=== PATIENT | male | born 1950 | race Caucasian/White ===

== ENCOUNTER → 2017-09-26 | Outpatient (CLI) | payer MEDICARE, OTHER ==
[2017-09-26 13:00] LABS: ABSOLUTE BASOPHILS # (AUTO) 0.1 10^3/uL (0.0-0.2); ABSOLUTE EOSINOPHILS # (AUTO) 0.1 10^3/uL (0.0-0.6); ABSOLUTE LYMPHOCYTES (AUTO) 1.6 10^3/uL (0.5-4.7); ABSOLUTE MONOCYTES (AUTO) 0.3 10^3/uL (0.1-1.4); ABSOLUTE NEUT (AUTO) 4.8 10^3/uL (1.7-8.2); BASOPHILS % (AUTO) 1.1 % (0-2); EOSINOPHILS % (AUTO) 1.4 % (0-6); HEMATOCRIT 34.6 % (37.9-51.0); LYMPHOCYTES % (AUTO) 23.6 % (13-45); MEAN CORPUSCULAR HEMOGLOBIN 31.8 pg (27.0-33.4); MEAN CORPUSCULAR HGB CONC 34.6 g/dL (32.0-36.0); MEAN CORPUSCULAR VOLUME 92 fl (80-97); MONOCYTES % (AUTO) 4.9 % (3-13); PLATELET COUNT 289 10^3/uL (150-450); RED BLOOD COUNT 3.78 10^6/uL (4.35-5.55); RED CELL DISTRIBUTION WIDTH 13.3 % (11.5-14.0); TOTAL CELLS COUNTED % (AUTO) 100 %; WHITE BLOOD COUNT 6.9 10^3/uL (4.0-10.5)
[2017-09-26 13:32] LABS: ALANINE AMINOTRANSFERASE 14 U/L (21-72); ALBUMIN 3.4 g/dL (3.5-5.0); ALKALINE PHOSPHATASE 82 U/L (38-126); ANION GAP 9 (5-19); ASPARTATE AMINO TRANSFERASE 11 U/L (17-59); BILIRUBIN,DIRECT 0.3 mg/dL (0.0-0.4); BILIRUBIN,TOTAL 0.6 mg/dL (0.2-1.3); BLOOD UREA NITROGEN 17 mg/dL (7-20); CALCIUM 8.5 mg/dL (8.4-10.2); CARBON DIOXIDE 27 mmol/L (22-30); CHLORIDE 106 mmol/L (98-107); GLUCOSE 91 mg/dL (75-110); POTASSIUM 4.3 mmol/L (3.6-5.0); SODIUM 141.9 mmol/L (137-145); TOTAL PROTEIN 6.2 g/dL (6.3-8.2)
[2017-09-26 13:42] LABS: ERYTHROCYTE SEDIMENTATION RATE 49 mm/hr (0-20)
--- NOTE | 2017-09-26 14:20 | RADIOLOGY REPORT (SQ) ---
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 NUMBER OF VIEWS: Two views. TECHNIQUE: AP and lateral radiographic images acquired of the left knee. LIMITATIONS: None. FINDINGS: MINERALIZATION: Normal. BONES: Below the knee amputation. No acute fracture or dislocation. No worrisome bone lesions. JOINT: No effusion. SOFT TISSUES: Soft tissue defect in the anterior tissues at the level of the tibial stump. No radio- opaque foreign body. OTHER: No other significant finding. IMPRESSION: BELOW THE KNEE AMPUTATION. SOFT TISSUE ULCERATION ANTERIOR TO THE TIBIAL STUMP. NO COM MUNICATION TO THE BONY SURFACE AND NO BONY FINDINGS OF OSTEOMYELITIS. NO FOREIGN BODY. TECHNICAL DOCUMENTATION: JOB ID: [id number] [employer]- All Rights Reserved Reading location - IP/workstation name: [email or web address]
== END ==
LOC: OD 12:13
PROVIDERS: ATTEND Surgery
DX: L97.222 Non-pressure chronic ulcer of left calf with fat layer exposed (principal)
CPT/HCPCS: 36415; 80053; 85025; 85652; 86140

== ENCOUNTER 2017-09-30 07:01 | Day surgery (SDC) | payer MEDICARE, OTHER ==
[~2017-09-30 07:01] MED LIST: BACITRACIN INJ 50,000 UNIT VIAL ONE; BUPIVACAINE HCL 0.25 % INJ/PF (2.5 MG/1 ML) 30 ML VIAL ONE; COLLAGENASE CLOSTRIDIUM HIST. OINT 30 GM ONE; LIDOCAINE 0.5% INJ-PF (5 MG/ML) 50 ML SDV ONE; SILVER SULFADIAZINE 1% CREAM 25 GM ONE
[2017-09-30 07:45] LABS: ABSOLUTE BASOPHILS # (AUTO) 0.1 10^3/uL (0.0-0.2); ABSOLUTE EOSINOPHILS # (AUTO) 0.3 10^3/uL (0.0-0.6); ABSOLUTE LYMPHOCYTES (AUTO) 2.2 10^3/uL (0.5-4.7); ABSOLUTE MONOCYTES (AUTO) 0.5 10^3/uL (0.1-1.4); ABSOLUTE NEUT (AUTO) 5.6 10^3/uL (1.7-8.2); BASOPHILS % (AUTO) 1.4 % (0-2); EOSINOPHILS % (AUTO) 3.2 % (0-6); HEMATOCRIT 35.3 % (37.9-51.0); HEMOGLOBIN 12.3 g/dL (13.5-17.0); LYMPHOCYTES % (AUTO) 25.3 % (13-45); MEAN CORPUSCULAR HGB CONC 34.9 g/dL (32.0-36.0); MEAN CORPUSCULAR VOLUME 92 fl (80-97); MONOCYTES % (AUTO) 5.7 % (3-13); PLATELET COUNT 314 10^3/uL (150-450); RED BLOOD COUNT 3.85 10^6/uL (4.35-5.55); RED CELL DISTRIBUTION WIDTH 13.2 % (11.5-14.0); SEGMENTED NEUTROPHILS % (AUTO) 64.4 % (42-78); TOTAL CELLS COUNTED % (AUTO) 100 %; WHITE BLOOD COUNT 8.7 10^3/uL (4.0-10.5)
[2017-09-30] MEDS ORDERED: PROPOFOL INJ 200 MG/20 ML VIAL IV ONE (11:03)
[2017-09-30] MEDS ORDERED: FENTANYL CITRATE INJ/PF 100 MCG/2 ML AMPUL ONE (11:03)
[2017-09-30] MEDS ORDERED: MIDAZOLAM 2 MG/2 ML INJ ONE (11:03)
--- NOTE | 2017-09-30 11:22 | PDOC H&P ---
General Chief Complaint: This patient was presented with relatively superficial necrosis necrosis in the left below-knee amputation stump in the past, resolvable, has involved deeper necrosis down to the muscle and possibly bursa. Arterial insufficiency is suspected. Despite numerous efforts at getting an arterial duplex study done somehow of this has not proved possible. He is to get one next Friday. In the meanwhile he is brought to the operating room today to debride all necrotic debris. The hope is to debride nonviable tissue allow for granulation and hopefully salvage of this below-knee amputation. This patient is very functional in prosthesis. He does have continued difficulty in quitting tobacco use, unfortunately. - Current Medications/Allergies Home Medications: Aspirin [Ecotrin] 81 mg PO DAILY 10/29/13 Cyanocobalamin (Vitamin B-12) [Vitamin B-12] 2,000 mcg PO DAILY 10/29/13 Multivitamin [Daily Vitamin] 1 each PO DAILY 10/29/13 Omeprazole [Prilosec] 20 mg PO DAILY 10/29/13 Pregabalin [Lyrica 100 Mg Capsule] 200 mg PO BID 10/29/13 Rosuvastatin Calcium [Crestor 10 mg Tablet] 10 mg PO DAILY 10/29/13 Sumatriptan Succinate [Imitrex] 50 mg PO ASDIR PRN 10/29/13 Tizanidine HCl [Zanaflex] 2 mg PO TID 10/29/13 Venlafaxine HCl [Effexor 75 mg Tablet] 75 mg PO DAILY 10/29/13 Baclofen [Baclofen 10 mg Tablet] 10 mg PO Q6 PRN 09/22/17 Levorphanol Tartrate 1 mg PO PRN PRN 09/29/17 Allergies/Adverse Reactions: povidone-iodine [From Betadine] Allergy (Intermediate, Verified 09/30/17 07:36) turns purple, itching Soap [From Betadine] Allergy (Intermediate, Verified 09/30/17 07:36) turns purple, itching Past Medical History Cardiac Medical History: Reports: Hypertension - ON MEDS Denies: Coronary Artery Disease, Myocardial Infarction Pulmonary Medical History: Denies: Asthma, Bronchitis, Chronic Obstructive Pulmonary Disease (COPD), Pneumonia Neurological Medical History: Denies: Seizures Musculoskeltal Medical History: Reports: Arthritis Hematology: Denies: Anemia Family History Parental Family History Reviewed: No Children Family History Reviewed: No Sibling(s) Family History Reviewed.: No Social History Smoking Status: Current Every Day Smoker Physical Exam Vital Signs: Temp Pulse Resp BP Pulse Ox 98.4 F 50 L 18 166/73 H 100 09/30/17 07:00 09/30/17 07:00 09/30/17 07:00 09/30/17 07:00 09/30/17 07:00 Intake & Output 09/29/17 09/30/17 10/01/17 06:59 06:59 06:59 Intake Total 0 Balance 0 Weight 99.79 kg 99.79 kg Additional comments: Constitutional: Well-developed well-nourished gentleman. No apparent acute distress. Eyes: Mucous membranes pink and moist, pupils equal and reactive to light. Conjunctiva normal. Cornea normal. ENT: Hearing grossly normal. External pinna normal to inspection. Teeth mostly intact. Tongue normal to inspection. Cardiac: Heart sounds 1 and 2 normal. Respiratory breath sounds are present bilaterally, normal. Normal respiratory effort. Skin: Large ulcer about 8 x 6 x 2 cm in the anterior lateral aspect of the left below-knee amputation site. Psychiatric: Judgment, memory, insight seem normal. Mood is pleasant and appropriate. Extremities: Upper extremities show normal range of movement. Pulses present noted to the radial arteries. Capillary refill normal. No cyanosis noted. No muscle wasting noted. Lower extremities:Large ulcer about 8 x 6 x 2 cm in the anterior lateral aspect of the left below-knee amputation site.. Impression/Plan Plan: The plan is to debride the existing left below-knee amputation site stump and to continue care in the wound clinic subsequently. Likely outcomes are revision to a higher level possibly a above knee amputation versus hoped for salvage of the below-knee amputation. The patient is familiar with the risks, benefits, expected alternatives and he wishes to proceed.
[2017-09-30] MEDS ORDERED: MORPHINE SULFATE 10 MG/ML INJ IV PRN (11:59)
[2017-09-30] MEDS ORDERED: PROMETHAZINE HCL INJ 25 MG/1 ML VIAL IV PRN ×2 (11:59)
[2017-09-30] MEDS ORDERED: DIPHENHYDRAMINE HCL 50 MG/ML VIAL IV PRN (11:59)
[2017-09-30] MEDS ORDERED: OXYCODONE-ACETAMINOPHEN 5-325 MG TABLET PO PRN ×2 (11:59)
[2017-09-30] MEDS ORDERED: FENTANYL CITRATE INJ/PF 100 MCG/2 ML AMPUL IV PRN ×3 (11:59)
[2017-09-30] MEDS ORDERED: MEPERIDINE HCL/PF INJ 25 MG/1 ML DISP.SYRIN IV PRN (11:59)
[2017-09-30] MEDS: FENTANYL CITRATE INJ/PF 100 MCG/2 ML AMPUL ONE ×3 (12:06→12:22)
--- NOTE | 2017-09-30 12:07 | Discharge Summary ---
Discharge Summary (SDC) - Discharge Final Diagnosis: #1 necrotic wound of left below-knee amputation stump. 2. Tobacco use disorder. 3. Peripheral arterial disease. Date of Surgery: 09/30/17 Discharge Date: 09/30/17 Condition: Fair Treatment or Instructions: Discharge home [after recovery per ASU criteria]. Diet ,as tolerated, when fully awake advance as tolerated. Activities within moderation encouraged. Follow up in wound clinic by appointment on Friday of this week. Call for appointment. Leave wounds [covered], [keep clean and dry, until wound clinic visit. Hold of on school/work [until evaluation in office]. Meds per med rec. May shower [in 48 hrs], [try to keep operated area as dry as possible]. Prescriptions: Oxycodone HCl/Acetaminophen [Percocet 5-325 mg Tablet] 1 tab PO ASDIR PRN #15 tab PRN Reason: Referrals: CONRAD WEBSTER PA-C [Primary Care Provider] - Discharge Diet: As Tolerated Respiratory Treatments at Home: Deep Breathing/Coughing Discharge Activity: Activity As Tolerated Report the Following to Your Physician Immediately: Shortness of Breath, Unusual Bleeding
--- NOTE | 2017-09-30 12:10 | Operative Report ---
Operative Report DATE OF SURGERY: 09/30/17 PREOPERATIVE DIAGNOSIS: #1 necrotic wound of left below-knee amputation stump. 2. Tobacco use disorder. 3. Peripheral arterial disease. POSTOPERATIVE DIAGNOSIS: #1 necrotic wound of left below-knee amputation stump. 2. Tobacco use disorder. 3. Peripheral arterial disease. OPERATION: Debridement of necrotic left below-knee amputation site. Sharp, excisional, surgical. SURGEON: KATE RODGERS LADLE BUILDER: None. ANESTHESIA: LMAC TISSUE REMOVED OR ALTERED: Necrotic subcutaneous tissue, tendon, muscle. COMPLICATIONS: None. ESTIMATED BLOOD LOSS: 5 mL. INTRAOPERATIVE FINDINGS: Of necrotic subcutaneous tissue, muscle, tendon. After diligent debridement the remaining tissues seem viable. These do include what appears to be a epicondrium. PROCEDURE: PROCEDURE: The [left foot ]was prepared with Hibiclens and draped out with sterile linen. After the"universal time-out", in which it was confirmed that the patient [ did receive antibiotic], the procedure commenced. The patient was appropriately anesthetized. The wound was probed. The wound was debrided of non viable tissue using[ Rongeurs] with removal of loose debris, as well. The wound was now irrigated with saline and [Surgicel] placed within it, dressed with [Kerlix] and the procedure concluded.
[2017-09-30] MEDS ORDERED: ACETAMINOPHEN 1,000 MG/100 ML RTUPB IV ONE (12:26)
[2017-09-30] MEDS ORDERED: OXYCODONE-ACETAMINOPHEN 5-325 MG TABLET ONE (13:38)
[2017-09-30 14:55] VITALS: BP 160/65
== END 2017-09-30 14:40 | disposition home or self-care (01) ==
LOC: OROUT 07:01
PROVIDERS: ATTEND Surgery
DX: T87.54 Necrosis of amputation stump, left lower extremity (principal); Y83.5 Amputation of limb(s) as the cause of abnormal reaction of the patient, or of later complication, without mention of misadventure at the time of the procedure; I73.9 Peripheral vascular disease, unspecified; I10 Essential (primary) hypertension; F17.210 Nicotine dependence, cigarettes, uncomplicated; M19.90 Unspecified osteoarthritis, unspecified site; Z79.82 Long term (current) use of aspirin; Z79.899 Other long term (current) drug therapy
CPT/HCPCS: 36415; 87070; 87205; 85025; 87075; 87077; 87186; 11043; J2250; J3490 ×2; J3010; A9270; J2704; J0131; 1470

== ENCOUNTER → 2017-10-07 | Outpatient (CLI) | payer MEDICARE, OTHER ==
--- NOTE | 2017-10-08 07:58 | XCELERA REPORT ---
[address] [address] Lower Extremity Venous Evaluation Procedure: A bilateral duplex scan of the lower extremity veins was performed. The evaluation included responses to compression and other maneuvers with patient in the supine and standing positions to assess venous insufficiency. Right Sided Venous Evaluation Deep venous system evaluatiion shows patent veins with no obstruction or significant reflux identified. Sapheno Femoral junction: no reflux. Femoral vein reflux: no reflux. Greater Saphenous vein, Proximal thigh: reflux: no reflux. Greater Saphenous vein, Distal thigh: reflux: no reflux. Greater Saphenous vein, Proximal below knee: reflux: no reflux. No significant Perforators identified. Left Sided Venous Evaluation Study limited by presence of amputation. Deep venous system evaluatiion shows patent veins with no obstruction or significant reflux identified. Sapheno Femoral junction: no reflux. Femoral vein reflux: no reflux. Greater Saphenous vein, Proximal thigh: reflux: none. No significant Perforators identified. Interpretation Summary No duplex evidence of DVT or obstruction in the bilateral lower extremities. Study limited by BKA. Name: LIZETT LIZARRAGA Age: 67 yrs Gender: Male : 1950 Patient Status: Preadmit Patient Location: [facility] Study Date: 10/07/2017 02:33 PM Reason For Study: ULCER Ordering Physician: KATE ULRICH Performed By: Nam Heath : KATE ULRICH > Kate Ulrich
--- NOTE | 2017-10-08 08:01 | XCELERA REPORT ---
[address] [address] Lower Extremity Arterial Evaluation Name: LIZETT LIZARRAGA Age: 67 yrs Gender: Male : 1950 Patient Status: Preadmit Patient Location: SP Study Date: 10/07/2017 02:12 PM Procedure: A color flow and duplex scan of the lower extremity arteries was performed bilaterally with velocity and waveform anaylsis. Reason For Study: ULCER Ordering Physician: KATE ULRICH Performed By: Nam Heath Measurements and Calculations Right Left [employer] PSV 141.4 138.3 cm/sec Prox PFA PSV -150.1 -71.2 cm/sec Prox SFA PSV 124.0 140.6 cm/sec Mid SFA PSV -124.9 -80.8 cm/sec Dist SFA PSV -113.1 -97.0 cm/sec Prox Pop A PSV 73.9 221.7 cm/sec Dist MACHELLE PSV 58.7 cm/sec Dist [employer] PSV 54.6 cm/sec Kimo Pedis PSV -20.8 cm/sec Right Side Arterial Evaluation Normal velocity and triphasic waveforms noted from the Common Femoral artery to the infrageniculate vessels. Biphasic Dorsalis Pedis. 0-19% stenosis at the Dorsalis Pedis. Ankle Brachial index not done, uncomfortable to the patient. Left Side Arterial Evaluation Normal velocity and triphasic waveforms noted from the Common Femoral artery to the Popliteal artery. 0 % stenosis. Interpretation Summary Mild hemodynamically significant lesions in the right lower extremity only, on duplex imaging, at rest. No hemodynamically significant lesions in the left lower extremity only, on duplex imaging, at rest. : KATE ULRICH > Kate Ulrich
== END ==
LOC: SP 13:30
PROVIDERS: ATTEND Surgery
DX: L97.222 Non-pressure chronic ulcer of left calf with fat layer exposed (principal)
CPT/HCPCS: 93925; 93970